=== PATIENT | female | born 2005 | race Two or more races ===

== ENCOUNTER 2023-02-12 18:16 | Emergency (ER) | payer BC, OTHER ==
[~2023-02-12] VITALS: Ht 152.4 cm; Wt 59.0 kg
== END 2023-02-12 19:36 | disposition home or self-care (01) ==
LOC: ER 18:17 → EMR PED 18:55 → ER 18:55 → EMR PED 19:36
DX: M25.572 Pain in left ankle and joints of left foot (principal); W18.39XA Other fall on same level, initial encounter; Y93.89 Activity, other specified; Y92.89 Other specified places as the place of occurrence of the external cause